=== PATIENT | male | born 1970 | race African-American/Black ===

== ENCOUNTER 2016-12-16 09:31 | Inpatient (IN) | payer OTHER ==
[2016-12-16 10:00] VITALS: BMI 25.1
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
[2016-12-16] MEDS ORDERED: guaiFENesin/D-METHORPHAN HB 10 ML UNIT-DOSE CUPS PO PRN (13:43)
[2016-12-16] MEDS ORDERED: ACETAMINOPHEN 325 MG TABLET (FP) PO PRN (13:43)
[2016-12-16] MEDS ORDERED: IBUPROFEN 400 MG TABLET (FP) PO PRN (13:43)
[2016-12-16] MEDS ORDERED: P-EPHED 60MG/TRIPROLIDI 2.5MG TABLET PO PRN (13:43)
[2016-12-16] MEDS ORDERED: chlordiazePOXIDE HCL 25 MG CAPSULE PO PRN (13:43)
[2016-12-16] MEDS ORDERED: MAGNESIUM HYDROX 2400MG/30ML ORAL SUSPENSION 30 ML CUP PO PRN (13:43)
[2016-12-16] MEDS ORDERED: hydrOXYzine PAMOATE 50 MG CAPSULE (FP) PO PRN (13:43)
[2016-12-16] MEDS ORDERED: MAG HYDROX/AL HYDROX/SIMETH 30 ML UNIT-DOSE CUP PO PRN (13:43)
[2016-12-16] MEDS ORDERED: MAGNESIUM CITRATE 300 ML BOTTLE PO PRN (13:43)
[2016-12-16] MEDS ORDERED: NICOTINE POLACRILEX 4 MG GUM BUC PRN (13:43)
[2016-12-16] MEDS ORDERED: LOPERAMIDE HCL 2 MG CAPSULE PO PRN (13:43)
[2016-12-16] MEDS ORDERED: MENTHOL/PHENOL 1 EACH UD MM PRN (13:43)
[2016-12-16] MEDS ORDERED: LIDOCAINE VISCOUS 2% ORAL/TOP 20 ML UNIT-DOSE CUP MM PRN (13:45)
[2016-12-16] MEDS ORDERED: chlordiazePOXIDE HCL 25 MG CAPSULE PO ONE (13:58)
[2016-12-16] MEDS: chlordiazePOXIDE HCL 25 MG CAPSULE PO SCH ×2 (17:22→22:22)
[2016-12-16 20:02] LABS: URINE APPEARANCE CLEAR; URINE BILIRUBIN NEGATIVE (NEGATIVE); URINE BLOOD NEGATIVE (NEGATIVE); URINE COLOR DKYELLOW; URINE GLUCOSE (UA) NEGATIVE (NEGATIVE); URINE KETONE NEGATIVE (NEGATIVE); URINE LEUK ESTERASE NEGATIVE (NEGATIVE); URINE NITRITE NEGATIVE (NEGATIVE); URINE UROBILINOGEN 4.0 E.U/dl E.U./dl (0.2-1.0)
[2016-12-16 20:13] LABS: URINE PROTEIN 1+ (NEGATIVE)
[2016-12-16 20:23] LABS: URINE MUCUS RARE; URINE WBC <1 /hpf (3-5)
[2016-12-16] MEDS: THIAMINE HCL 100 MG TABLET (FP) PO SCH (22:22)
[2016-12-17] MEDS: chlordiazePOXIDE HCL 25 MG CAPSULE PO SCH ×4 (05:31→22:22)
[2016-12-17 09:53] LABS: MCH 30.8 pg (25.7-33.7); MCHC 32.9 g/dl (32.0-35.9); MEAN CELL VOLUME 93.7 fl (80-96); MEAN PLT VOLUME 8.3 fl (7.5-11.1); PLATELET COUNT 197 K/MM3 (134-434); RDW 14.4 % (11.9-15.9); WHITE BLOOD COUNT 4.1 K/mm3 (4.0-10.0)
[2016-12-17 10:30] LABS: ALK PHOS 76 U/L (45-117); ANION GAP 13 (8-16); BILIRUBIN,TOTAL 1.3 mg/dL (0.2-1.0); CALCIUM 8.7 mg/dL (8.5-10.1); CO2 28 mmol/L (21-32); GLUCOSE,RANDOM 108 mg/dL (74-106); SGOT/AST 36 U/L (15-37); SGPT/ALT 28 U/L (12-78); TOT PROT 7.2 g/dl (6.4-8.2)
[2016-12-17] MEDS: PRENATAL VITAMINS W/ FOLIC ACID TABLET (FP) PO SCH (10:35)
[2016-12-17] MEDS: NICOTINE 21 MG/24 HOURS TOPICAL PATCH TD SCH (10:37)
--- NOTE | 2016-12-17 10:43 | PN ---
S CIWA - CIWA Score Nausea/Vomitin Muscle Tremors: 3 Anxiety: 3 Agitation: 2 Paroxysmal Sweats: 3 Orientation: 0-Oriented Tacttile Disturbances: 2-Mild Itch/Numbness/Burn Auditory Disturbances: 0-None Visual Disturbances: 0-None Headache: 0-None Present CIWA-Ar Total Score: 15 S Progress Note (SOAP) Subjective: weakness, sweats ,shakes, concerned about job, Objective: 12/17/16 10:41 Vital Signs Temperature 97.4 F L 12/17/16 10:16 Pulse Rate 91 H 12/17/16 10:16 Respiratory Rate 16 12/17/16 10:16 Blood Pressure 121/85 12/17/16 10:16 O2 Sat by Pulse Oximetry (%) Laboratory Tests 12/16/16 12/16/16 12/17/16 13:50 15:00 06:00 WBC 4.1 RBC 4.44 D Hgb 13.7 D Hct 41.6 D MCV 93.7 MCHC 32.9 RDW 14.4 Plt Count 197 MPV 8.3 Sodium Potassium Chloride Carbon Dioxide Anion Gap BUN Creatinine Creat Clearance w eGFR Random Glucose Calcium Total Bilirubin AST ALT Alkaline Phosphatase Total Protein Albumin Urine Color Dkyellow Urine Appearance Clear Urine pH 5.0 Ur Specific [place] 1.019 Urine Protein 1+ H Urine Glucose (UA) Negative Urine Ketones Negative Urine Blood Negative Urine Nitrite Negative Urine Bilirubin Negative Urine Urobilinogen 4.0 e.u/dl Ur Leukocyte Esterase Negative Urine RBC None Urine WBC <1 Urine Mucus Rare Hepatitis C Antibody <0.1 12/17/16 06:00 WBC RBC Hgb Hct MCV MCHC RDW Plt Count MPV Sodium 141 Potassium 3.7 Chloride 100 Carbon Dioxide 28 Anion Gap 13 BUN 12 Creatinine 1.0 D Creat Clearance w eGFR > 60 Random Glucose 108 H D Calcium 8.7 Total Bilirubin 1.3 H D AST 36 D ALT 28 D Alkaline Phosphatase 76 D Total Protein 7.2 Albumin 4.0 Urine Color Urine Appearance Urine pH Ur Specific [place] Urine Protein Urine Glucose (UA) Urine Ketones Urine Blood Urine Nitrite Urine Bilirubin Urine Urobilinogen Ur Leukocyte Esterase Urine RBC Urine WBC Urine Mucus Hepatitis C Antibody pt aox3 in nad lying in bed Assessment: 12/17/16 10:42 withdrawal sx's Plan: cont. detox increase fluids
--- NOTE | 2016-12-17 12:54 | EKG ---
Test Reason : Blood Pressure : / mmHG Vent. Rate : 093 BPM Atrial Rate : 093 BPM P-R Int : 156 ms QRS Dur : 096 ms QT Int : 362 ms P-R-T Axes : 067 000 033 degrees QTc Int : 450 ms NORMAL SINUS RHYTHM NORMAL ECG NO PREVIOUS ECGS AVAILABLE Confirmed by SERGE HAMPTON, ALLISON ([id number]) on 12/17/2016 12:53:41 PM Referred By: Freddy Carvajal Confirmed By:ALLISON VALENTINE MD
[2016-12-17] MEDS: THIAMINE HCL 100 MG TABLET (FP) PO SCH (22:22)
[2016-12-17] MEDS: diphenhydrAMINE HCL 50 MG CAPSULE PO PRN (22:22)
[2016-12-18] MEDS: chlordiazePOXIDE HCL 25 MG CAPSULE PO SCH ×2 (06:00→10:44)
--- NOTE | 2016-12-18 10:06 | PN ---
[facility] CIWA - CIWA Score Nausea/Vomitin-No Nausea/No Vomiting Muscle Tremors: 3 Anxiety: 3 Agitation: 3 Paroxysmal Sweats: 3 Orientation: 0-Oriented Tacttile Disturbances: 0-None Auditory Disturbances: 0-None Visual Disturbances: 0-None Headache: 1-Very Mild CIWA-Ar Total Score: 13 BHS Progress Note (SOAP) Subjective: light headache sweats shakes tired interrupted sleep Objective: 12/18/16 10:04 Vital Signs Temperature 97.9 F 12/18/16 09:47 Pulse Rate 90 12/18/16 09:47 Respiratory Rate 18 12/18/16 09:47 Blood Pressure 128/81 12/18/16 09:47 O2 Sat by Pulse Oximetry (%) Laboratory Tests 12/16/16 12/16/16 12/17/16 13:50 15:00 06:00 WBC 4.1 RBC 4.44 D Hgb 13.7 D Hct 41.6 D MCV 93.7 MCHC 32.9 RDW 14.4 Plt Count 197 MPV 8.3 Sodium Potassium Chloride Carbon Dioxide Anion Gap BUN Creatinine Creat Clearance w eGFR Random Glucose Calcium Total Bilirubin AST ALT Alkaline Phosphatase Total Protein Albumin Urine Color Dkyellow Urine Appearance Clear Urine pH 5.0 Ur Specific [place] 1.019 Urine Protein 1+ H Urine Glucose (UA) Negative Urine Ketones Negative Urine Blood Negative Urine Nitrite Negative Urine Bilirubin Negative Urine Urobilinogen 4.0 e.u/dl Ur Leukocyte Esterase Negative Urine RBC None Urine WBC <1 Urine Mucus Rare RPR Titer Hepatitis C Antibody <0.1 12/17/16 12/17/16 06:00 06:00 WBC RBC Hgb Hct MCV MCHC RDW Plt Count MPV Sodium 141 Potassium 3.7 Chloride 100 Carbon Dioxide 28 Anion Gap 13 BUN 12 Creatinine 1.0 D Creat Clearance w eGFR > 60 Random Glucose 108 H D Calcium 8.7 Total Bilirubin 1.3 H D AST 36 D ALT 28 D Alkaline Phosphatase 76 D Total Protein 7.2 Albumin 4.0 Urine Color Urine Appearance Urine pH Ur Specific [place] Urine Protein Urine Glucose (UA) Urine Ketones Urine Blood Urine Nitrite Urine Bilirubin Urine Urobilinogen Ur Leukocyte Esterase Urine RBC Urine WBC Urine Mucus RPR Titer Nonreactive Hepatitis C Antibody awake/alert ambulating no acute distress Assessment: 12/18/16 10:05 withdrawal sx Plan: continue detox increase fluids
[2016-12-18] MEDS: PRENATAL VITAMINS W/ FOLIC ACID TABLET (FP) PO SCH (10:43)
[2016-12-18] MEDS: NICOTINE 21 MG/24 HOURS TOPICAL PATCH TD SCH (10:43)
--- NOTE | 2016-12-18 13:57 | CONSULT ---
[facility] Psychiatric Consult - Data Date of interview: 12/18/16 Admission source: [facility] Identifying data: This is 46 years old male with unknown past psychiatric history intoxicated with: Alcohol and Nicotine Substance Abuse History: - Smoking Cessation. Smoking history: Current every day smoker. Have you smoked in the past 12 months: Yes. Aproximately how many cigarettes per day: 4. Hx Chewing Tobacco Use: No. Initiated information on smoking cessation: Yes. 'Breaking Loose' booklet given: 12/16/16. - Substance & Tx. History. Hx Alcohol Use: Yes. Hx Substance Use: No. Substance Use Type : Alcohol. Hx Substance Use Treatment: Yes. - Substances Abused. Alcohol. Route: Oral. Frequency: Daily. Amount used: 2 40 OZ BEERS/ 1PINT VODKA. Age of first use: 15. Date of Last Use: 12/16/16 Medical History: Denies any significant medical issues Psychiatric History: Patient is poor historian, circumstancial and tangential in thought process, patient may have high ammonia level Physical/Sexual Abuse/Trauma History: Denies Additional Comment: Observation. Detox Unit Care Protocol Mental Status Exam - Mental Status Exam Alert and Oriented to: Person Cognitive Function: Fair Patient Appearance: Unkempt Mood: Sad Affect: Flat Patient Behavior: Sedated Speech Pattern: Delayed Voice Loudness: Mildly Soft/Quiet Thought Process: Circumstantial, Tangential Thought Disorder: Present Hallucinations: Denies Suicidal Ideation: Denies Homicidal Ideation: Denies Insight/Judgement: Impaired Sleep: Difficulty falling asleep Appetite: Fair Muscle strength/Tone: Mild Hypotonicity Gait/Station: Shuffling Additional Comments: Observation. Detox Unit Care Protocol Psychiatric Findings - Problem List ([place] 1, 2,3) (1) Alcohol dependence with uncomplicated withdrawal Current Visit: Yes Status: Chronic (2) Nicotine dependence Current Visit: Yes Status: Chronic Qualifiers: Nicotine product type: cigarettes Substance use status: uncomplicated Qualified Code(s): F17.210 - Nicotine dependence, cigarettes, uncomplicated (3) Alcohol-induced mood disorder Current Visit: Yes Status: Acute (4) Alcohol-induced hallucinations Current Visit: Yes Status: Acute - Initial Treatment Plan Initial Treatment Plan: Observation. Detox Unit Care Protocol. Blood ammonia level stat
[2016-12-18] MEDS: chlordiazePOXIDE 5 MG CAPSULE PO SCH ×2 (17:50→22:46)
[2016-12-18] MEDS: THIAMINE HCL 100 MG TABLET (FP) PO SCH (22:46)
[2016-12-18] MEDS: diphenhydrAMINE HCL 50 MG CAPSULE PO PRN (22:46)
[2016-12-19] MEDS: diphenhydrAMINE HCL 50 MG CAPSULE PO PRN ×2 (00:49→22:13)
[2016-12-19] MEDS: chlordiazePOXIDE 5 MG CAPSULE PO SCH ×2 (06:53→10:54)
[2016-12-19] MEDS: NICOTINE 21 MG/24 HOURS TOPICAL PATCH TD SCH (10:53)
[2016-12-19] MEDS: PRENATAL VITAMINS W/ FOLIC ACID TABLET (FP) PO SCH (10:54)
--- NOTE | 2016-12-19 11:02 | PN ---
[facility] Progress Note (SOAP) Subjective: sweats feeling better. Objective: 12/19/16 11:01 Vital Signs Temperature 96.8 F L 12/19/16 10:00 Pulse Rate 79 12/19/16 10:00 Respiratory Rate 20 12/19/16 10:00 Blood Pressure 127/78 12/19/16 10:00 O2 Sat by Pulse Oximetry (%) awake/alert ambulating no acute distress Assessment: 12/19/16 11:01 withdrawal sx Plan: continue detox increase fluids d/c in am
[2016-12-19] MEDS: chlordiazePOXIDE HCL 10 MG CAPSULE PO SCH ×2 (18:15→22:13)
[2016-12-19] MEDS: THIAMINE HCL 100 MG TABLET (FP) PO SCH (22:13)
[2016-12-20] MEDS: chlordiazePOXIDE HCL 10 MG CAPSULE PO SCH (06:31)
[2016-12-20 07:57] VITALS: BP 111/65; PULSE 61; TEMP 97.7
--- NOTE | 2016-12-20 11:39 | DS ---
[facility] Detox Discharge Summary Admission Date: 12/16/16 Discharge Date: 12/20/16 - History Present History: Alcohol Dependence Pertinent Past History: Denies - Physical Exam Results Vital Signs: Vital Signs Temperature 97.7 F 12/20/16 06:00 Pulse Rate 61 12/20/16 06:00 Respiratory Rate 18 12/20/16 06:00 Blood Pressure 111/65 12/20/16 06:00 O2 Sat by Pulse Oximetry (%) Pertinent Admission Physical Exam Findings: Withdrawal sx. Laboratory Last Values WBC 4.1 K/mm3 (4.0-10.0) 12/17/16 06:00 RBC 4.44 M/mm3 (4.00-5.60) D 12/17/16 06:00 Hgb 13.7 GM/dL (11.7-16.9) D 12/17/16 06:00 Hct 41.6 % (35.4-49) D 12/17/16 06:00 MCV 93.7 fl (80-96) 12/17/16 06:00 MCHC 32.9 g/dl (32.0-35.9) 12/17/16 06:00 RDW 14.4 % (11.9-15.9) 12/17/16 06:00 Plt Count 197 K/MM3 (134-434) 12/17/16 06:00 MPV 8.3 fl (7.5-11.1) 12/17/16 06:00 Sodium 141 mmol/L (136-145) 12/17/16 06:00 Potassium 3.7 mmol/L (3.5-5.1) 12/17/16 06:00 Chloride 100 mmol/L (98-107) 12/17/16 06:00 Carbon Dioxide 28 mmol/L (21-32) 12/17/16 06:00 Anion Gap 13 (8-16) 12/17/16 06:00 BUN 12 mg/dL (7-18) 12/17/16 06:00 Creatinine 1.0 mg/dL (0.7-1.3) D 12/17/16 06:00 Creat Clearance w eGFR > 60 (>60) 12/17/16 06:00 Random Glucose 108 mg/dL (74-106) H D 12/17/16 06:00 Calcium 8.7 mg/dL (8.5-10.1) 12/17/16 06:00 Total Bilirubin 1.3 mg/dL (0.2-1.0) H D 12/17/16 06:00 AST 36 U/L (15-37) D 12/17/16 06:00 ALT 28 U/L (12-78) D 12/17/16 06:00 Alkaline Phosphatase 76 U/L (45-117) D 12/17/16 06:00 Ammonia 37.65 umol/L (11-32) H 12/18/16 14:25 Total Protein 7.2 g/dl (6.4-8.2) 12/17/16 06:00 Albumin 4.0 g/dl (3.4-5.0) 12/17/16 06:00 Urine Color Dkyellow 12/16/16 15:00 Urine Appearance Clear 12/16/16 15:00 Urine pH 5.0 (5.0-8.0) 12/16/16 15:00 Ur Specific [place] 1.019 (1.001-1.035) 12/16/16 15:00 Urine Protein 1+ (NEGATIVE) H 12/16/16 15:00 Urine Glucose (UA) Negative (NEGATIVE) 12/16/16 15:00 Urine Ketones Negative (NEGATIVE) 12/16/16 15:00 Urine Blood Negative (NEGATIVE) 12/16/16 15:00 Urine Nitrite Negative (NEGATIVE) 12/16/16 15:00 Urine Bilirubin Negative (NEGATIVE) 12/16/16 15:00 Urine Urobilinogen 4.0 e.u/dl E.U./dl (0.2-1.0) 12/16/16 15:00 Ur Leukocyte Esterase Negative (NEGATIVE) 12/16/16 15:00 Urine RBC None /hpf (0-3) 12/16/16 15:00 Urine WBC <1 /hpf (3-5) 12/16/16 15:00 Urine Mucus Rare 12/16/16 15:00 RPR Titer Nonreactive (NONREACTIVE) 12/17/16 06:00 Hepatitis C Antibody <0.1 s/co ratio (0.0-0.9) 12/16/16 13:50 labs noted - Treatment Hospital Course: Detox Protocol Followed, Detoxed Safely, Responded well, Discharged Condition Good, Rehab Referral Accepted Patient has Accepted a Rehab Referral to: [facility] - Medication Discharge Medications: Ambulatory Orders NK [No Known Home Medication] 12/16/16 - Diagnosis (1) Alcohol dependence with uncomplicated withdrawal Status: Acute (2) Nicotine dependence Status: Chronic Qualifiers: Nicotine product type: cigarettes Substance use status: uncomplicated Qualified Code(s): F17.210 - Nicotine dependence, cigarettes, uncomplicated - AMA Did Patient Leave Against Medical Advice: No
== END 2016-12-20 10:01 | disposition home or self-care (01) | DRG 775 ==
LOC: YASAS 09:31 → Y6N 11:16
PROVIDERS: ADMIT Internal Medicine Addiction Medicine; ATTEND Internal Medicine Addiction Medicine
PROC: HZ2ZZZZ Detoxification Services for Substance Abuse Treatment (ICD-10-PCS; principal; 2016-12-20)
DX: F10.230 Alcohol dependence with withdrawal, uncomplicated (principal); F17.210 Nicotine dependence, cigarettes, uncomplicated; F10.24 Alcohol dependence with alcohol-induced mood disorder; F10.251 Alcohol dependence with alcohol-induced psychotic disorder with hallucinations; Z59.0 Homelessness
CPT/HCPCS: 36415; 80053; 81003; 81015; 82140; 85027; 86593; 93005; 93010